=== PATIENT | male | born 1955 | race Caucasian/White ===

== ENCOUNTER 2020-08-31 10:02 | Emergency (ER) | payer OTHER, BC ==
--- NOTE | 2020-08-31 10:32 | TELE ---
HPI Do you have fever,cough or shortness of breath?: No - General Reason For Visit: COVID TEST 19 History Source: Patient Review of Systems - Review of Systems Constitutional: No: Chills, Fever Respiratory: No: Cough, Shortness of Breath Cardiac (ROS): No: Chest Pain *Physical Exam - Physical Exam HEENT: positive: Normal Voice - Medical Decision Making 08/31/20 10:31 Calling for covid testing No sxs Unable to connect via backline To proceed to [facility] d/w pt Discharge Diagnosis at time of Disposition: Encounter by telehealth for suspected COVID-19 - Referrals - Patient Instructions - Discharge Disposition: HOME Condition at time of Disposition: Good
== END 2020-08-31 10:36 | disposition home or self-care (01) ==
LOC: EDBD 10:02 → JVIRT 10:02
DX: Z11.59 Encounter for screening for other viral diseases (principal)
CPT/HCPCS: 99441-95

== ENCOUNTER 2022-04-17 07:49 | Day surgery (SDC) | payer OTHER, BC ==
[2022-04-13 11:36] VITALS: BMI 35.4
[2022-04-17] MEDS ORDERED: PROPOFOL 20 ML ONE ×4 (07:53)
[2022-04-17] MEDS ORDERED: LIDOCAINE HCL/PF 2% SDV 5ML VIAL ONE (07:53)
[2022-04-17 08:39] VITALS: TEMP 97.9
[2022-04-17 10:08] VITALS: BP 112/61; PULSE 79
== END 2022-04-17 10:00 | disposition home or self-care (01) ==
LOC: FASU-ENDO 07:49
PROVIDERS: ATTEND Internal Medicine Gastroenterology
PROC: 0DBN8ZX Excision of Sigmoid Colon, Via Natural or Artificial Opening Endoscopic, Diagnostic (ICD-10-PCS; 2022-04-17)
PROC: 0DBM8ZX Excision of Descending Colon, Via Natural or Artificial Opening Endoscopic, Diagnostic (ICD-10-PCS; principal; 2022-04-17 09:00)
DX: Z86.010 Personal history of colon polyps (principal); D12.4 Benign neoplasm of descending colon; D12.5 Benign neoplasm of sigmoid colon
CPT/HCPCS: 82962; 88305-TC

== ENCOUNTER 2022-06-15 07:19 | Day surgery (SDC) | payer OTHER, BC ==
[2022-06-13 11:16] VITALS: BMI 34.9
[2022-06-15] MEDS ORDERED: EPINEPHrine 1:10,000 (P-F SYR) 1 MG/10 ML DISP.SYRIN ONE (08:53)
[2022-06-15] MEDS ORDERED: EPINEPHrine 1:10,000 (P-F SYR) 1 MG/10 ML DISP.SYRIN IVPUSH ONE ×2 (08:55→09:45)
[2022-06-15 10:06] VITALS: BP 152/89; PULSE 70; TEMP 97.1
== END 2022-06-15 10:05 | disposition home or self-care (01) ==
LOC: FASU-ENDO 07:19
PROVIDERS: ATTEND Internal Medicine Gastroenterology
PROC: 0DB68ZX Excision of Stomach, Via Natural or Artificial Opening Endoscopic, Diagnostic (ICD-10-PCS; 2022-06-15)
PROC: 0W3P8ZZ Control Bleeding in Gastrointestinal Tract, Via Natural or Artificial Opening Endoscopic (ICD-10-PCS; 2022-06-15)
PROC: 0DB68ZX Excision of Stomach, Via Natural or Artificial Opening Endoscopic, Diagnostic (ICD-10-PCS; principal; 2022-06-15 08:40)
DX: C78.89 Secondary malignant neoplasm of other digestive organs (principal); K29.50 Unspecified chronic gastritis without bleeding; R93.3 Abnormal findings on diagnostic imaging of other parts of digestive tract
CPT/HCPCS: 82962; 88305-TC; 88341-TC; 88342-TC